=== PATIENT | female | born 1955 | race Caucasian/White ===

== ENCOUNTER 2016-06-06 15:54 | Emergency (ER) | payer MEDICARE ==
[2012-10-21 10:44] VITALS: BMI 32.4
[~2016-06-06 15:54] MED LIST: AMBIEN10 MG PO; BACTRIM DS TABL1 TAB PO; COLACE100 MG PO; COUMADIN5 MG PO; CUBICIN500 MG IV; CYMBALTA60 MG PO; MAXZIDE-25 MG T1 TAB; MAXZIDE-25 MG T1 TAB PO; NORCO 10/325 TA1 TA1 PO; OXYCONTIN10 MG PO; PERCOCET 5/3251 TA1 PO; ROBAXIN-750750 MG PO; VANCOMYCIN1 GM/2501 IV; XANAX1 MG PO
[2016-06-06 17:13] LABS: BASOPHILS 0.3 % (0.0-2.0); EOSINOPHILS 2.5 % (0-7); HEMATOCRIT 41.2 % (36.0-48.0); HEMOGLOBIN 13.9 g/dL (12-16); IMMATURE GRANULOCYTES 0.1 % (0-5); LYMPHOCYTES 29.3 % (15-50); MCH 28.5 pg (26.0-34.0); MCHC 33.7 g/dL (31.0-37.0); MCV 84.6 fL (80.0-100.0); MEAN PLATELET VOLUME 10.1 fL (7.4-10.4); MONOCYTES 7.5 % (2-11); NEUTROPHILS 60.3 % (40-80); RBC 4.87 10x6/uL (4.00-5.40); RDW 13.8 % (11.5-14.5); WBC 7.3 10x3/uL (4.8-10.8)
[2016-06-06 17:22] LABS: APTT 24.4 SECONDS (22.8-39.4); INR 0.91 (0.85-1.17)
[2016-06-06 17:23] LABS: PLATELET COUNT 203 10x3/uL (130-400)
[2016-06-06 17:37] LABS: ALBUMIN 3.5 g/dL (3.4-5.0); ANION GAP 7.8 mmol/L (8-16); BILIRUBIN - TOTAL 0.21 mg/dL (0.2-1.3); CARBON DIOXIDE 31.8 mmol/L (21.0-32.0); CREATININE - SERUM 0.9 mg/dL (0.6-1.3); POTASSIUM - SERUM 3.6 mmol/L (3.5-5.1); PROTEIN - SERUM 7.5 g/dL (6.4-8.2)
== END 2016-06-06 23:15 | disposition home or self-care (01) ==
LOC: D.ER 15:54
PROVIDERS: Emergency Medicine
DX: J06.9 Acute upper respiratory infection, unspecified (principal); I10 Essential (primary) hypertension; G47.9 Sleep disorder, unspecified

== ENCOUNTER 2017-06-21 21:38 | Emergency (ER) | payer MEDICARE ==
[2012-10-21 10:44] VITALS: BMI 32.4
[2017-06-21 22:40] LABS: BASOPHILS 0.4 % (0-2); EOSINOPHILS 5.6 % (0-7); HEMATOCRIT 41.8 % (36.0-48.0); HEMOGLOBIN 13.8 g/dL (12-16); IMMATURE GRANULOCYTES 0.3 % (0-5); MCH 27.3 pg (26.0-34.0); MCV 82.6 fL (80.0-100.0); MEAN PLATELET VOLUME 10.2 fL (7.4-10.4); MONOCYTES 8.4 % (2-11); NEUTROPHILS 55.3 % (40-80); RBC 5.06 10x6/uL (4.00-5.40); RDW 14.3 % (11.5-14.5)
[2017-06-21 22:44] LABS: APTT 25.7 SECONDS (22.8-39.4); INR 0.9 (0.85-1.17); PROTIME 11.8 SECONDS (11.6-15.0)
[2017-06-21 22:45] LABS: D-DIMER-QUANTITATIVE 0.45 ug/mLFEU (0.20-0.54)
[2017-06-21 22:46] LABS: PLATELET COUNT 253 10x3/uL (130-400)
[2017-06-21 22:48] LABS: ALBUMIN 3.5 g/dL (3.4-5.0); ALKALINE PHOSPHATASE 133 U/L (46-116); ALT (SGPT) 19 U/L (10-68); BILIRUBIN - TOTAL 0.18 mg/dL (0.2-1.3); CALC OSMOLALITY 280 mosm/kg (275-300); CALCIUM 8.9 mg/dL (8.5-10.1); CARBON DIOXIDE 30.4 mmol/L (21.0-32.0); CHLORIDE - SERUM 103 mmol/L (98-107); GLUCOSE 136 mg/dL (74-106); POTASSIUM - SERUM 4.1 mmol/L (3.5-5.1); PROTEIN - SERUM 7.6 g/dL (6.4-8.2); SODIUM 139 mmol/L (136-145); UREA NITROGEN 15 mg/dL (7-18); eGFR NON AFRICAN AMERICAN 60 mL/min (90-120)
[2017-06-21 23:00] LABS: AMYLASE - SERUM 25 U/L (25-115); CKMB 1.1 U/L (0.0-3.6); CREATINE KINASE 72 UL (21-215); LIPASE 160 U/L (73-393)
[2017-06-21 23:04] LABS: TROPONIN-I < 0.017 ng/mL (0.000-0.060)
[2017-06-22 00:05] LABS: APPEARANCE CLOUDY (CLEAR); BILIRUBIN NEGATIVE (NEGATIVE); COLOR YELLOW (YELLOW); GLUCOSE NEGATIVE (NEGATIVE); KETONE NEGATIVE (NEGATIVE); NITRITE NEGATIVE (NEGATIVE); PROTEIN NEGATIVE (NEGATIVE); SPECIFIC GRAVITY 1.005 (1.005-1.020); UROBILINOGEN NORMAL (NORMAL)
[2017-06-22 00:06] LABS: BACTERIA MANY /hpf (NONE SEEN); EPITHELIAL CELLS 0-5 /hpf (0-5); RED CELLS - URINE 0-5 /hpf (0-5)
== END 2017-06-22 01:17 | disposition home or self-care (01) ==
LOC: D.ER 21:38
PROVIDERS: Family Medicine
DX: N39.0 Urinary tract infection, site not specified (principal); K21.9 Gastro-esophageal reflux disease without esophagitis; I10 Essential (primary) hypertension

== ENCOUNTER → 2019-12-18 11:25 | Outpatient (CLI) | payer OTHER ==
[2012-10-21 10:44] VITALS: BMI 32.4
== END | disposition home or self-care (01) ==
LOC: D.RAD 11:25
PROVIDERS: ATTEND Pediatrics
DX: Z02.71 Encounter for disability determination (principal)